=== PATIENT | male | born 1990 | race Caucasian/White ===

== ENCOUNTER 2023-05-09 00:30 | Emergency (ER) | payer SELFPAY ==
[~2023-05-09] VITALS: Ht 198.1 cm; Wt 77.1 kg
[2023-05-09 00:57] VITALS: BP 111/69; PULSE 106; RESP 17; TEMP 98.3; O2SAT 99
== END 2023-05-09 02:30 | disposition left against medical advice (07) ==
LOC: MED 00:30
DX: R44.0 Auditory hallucinations (principal); Z53.21 Procedure and treatment not carried out due to patient leaving prior to being seen by health care provider
CPT/HCPCS: 99281